=== PATIENT | male | born 1960 | race Caucasian/White ===

== ENCOUNTER → 2024-05-10 | Outpatient (CLI) | payer MEDICARE ==
[2024-05-10 14:11] LABS: Partial Thromboplastin Time 24.3 sec (22.0-30.0); Prothrombin Time 11.2 sec (10.0-12.5)
[2024-05-10 18:46] LABS: HGB 15.1 g/dL (13.0-17.0); MCH 33.6 pg (27.0-32.0); MCHC 35.1 g/dL (32.0-37.0); MCV 95.8 FL (80.0-97.0); Mean Platelet Volume 10.3 FL (9.5-12.2); NRBC Per 100 WBC 0 X 10*3/uL (0.00-0.01); Platelet Count 305 X 10*3/uL (140-440); RBC 4.49 X 10*6/uL (4.40-5.60); RDW 11.7 % (11.5-14.5); WBC 8.72 X 10*3/uL (4.50-10.00)
[2024-05-10 19:14] LABS: ALT 58 U/L (10-49); AST 47 U/L (14-35); Albumin 4.4 g/dL (3.8-4.9); Albumin/Globulin Ratio 1.38 Ratio (1.60-3.17); Alkaline Phosphatase 106 U/L (41-126); BUN/Creat Ratio 12.75 Ratio (12.00-20.00); Blood Urea Nitrogen 10.2 mg/dL (9.0-27.0); Calcium 9.6 mg/dL (8.7-10.3); Carbon Dioxide 23.5 mmol/L (21.6-31.8); Chloride 100 mmol/L (96-109); Globulin 3.2 g/dL (1.6-3.3); Glucose 115 mg/dL (70-110); Potassium 4.8 mmol/L (3.5-5.5); Sodium 136 mmol/L (135-145); Total Bilirubin 0.4 mg/dL (0.3-1.2); Total Protein 7.6 g/dL (6.2-8.2)
== END | disposition home or self-care (01) ==
LOC: LABPAT 13:03
PROVIDERS: ATTEND Orthopaedic Surgery
DX: Z01.818 Encounter for other preprocedural examination (principal); Z22.322 Carrier or suspected carrier of Methicillin resistant Staphylococcus aureus; M16.12 Unilateral primary osteoarthritis, left hip; E11.9 Type 2 diabetes mellitus without complications
CPT/HCPCS: 36415; 80053; 83036; 85027; 85610; 85730; 86850; 86900; 86901; 87070; 93005

== ENCOUNTER 2024-05-21 07:34 | Day surgery (SDC) | payer MEDICARE ==
[2024-05-18 14:56] VITALS: BMI 35.7
[~2024-05-21 07:34] MED LIST: TRANEXAMIC 1,000 MG/100ML-NACL 1,000 MG in SALINE 1 100ML.BAG IV PRN; TRANEXAMIC 1,000 MG/100ML-NACL 1,000 MG in SALINE 1 100ML.BAG IVPB PRN
[2024-05-21] MEDS: ACETAMINOPHEN TAB 500 MG TAB PO PRN (08:25)
[2024-05-21] MEDS: DOCUSATE 100 MG CAP PO PRN (08:25)
[2024-05-21] MEDS: oxyCODONE ER 10 MG TAB.ER.12H PO PRN (08:25)
[2024-05-21] MEDS: LACTATED RINGERS 1,000 ML IV SCH (08:25)
[2024-05-21] MEDS: ONDANSETRON 4 MG/2 ML VIAL IVP PRN (08:46)
[2024-05-21] MEDS: FAMOTIDINE 20 MG/2 ML VIAL IVP PRN (08:46)
[2024-05-21] MEDS: KETOROLAC 15 MG/ML 1 ML VIAL IVP PRN (08:46)
[2024-05-21] MEDS: DEXAMETHASONE SOD PHOSPHATE 10 MG/ML 1 ML VIAL IV PRN (08:46)
[2024-05-21 08:47] LABS: Glucose,Whole Blood 157 mg/dL (70-110)
[2024-05-21] MEDS: fentaNYL (PF) 50 MCG/ML 2 ML AMP IVP PRN (08:53)
[2024-05-21] MEDS: MIDAZOLAM 2 MG/2 ML VIAL IV PRN (08:53)
--- NOTE | 2024-05-21 09:04 | P.ANPRN ---
Procedure Note - Anesthesia - Nerve Block Performed Left Kana Single Time Out Performed: Yes Date of Procedure: 05/21/24 Procedure Start Time: 08:53 Procedure Stop Time: 09:01 Location of Patient: PreOp Indication: Acute Post-Operative Pain, Requested by Surgeon Sedation Type: Sedate with meaningful contact maintained Preparation: Sterile Prep Position: Supine Needle Types: Pajunk Needle Gauge: 21 Ultrasound used to visualize needle placement: Yes Ultrasound used to observe medication spread: Yes Injectate: 0.5% Ropivacaine (see comment for volume) (20 mL +10 mL of normal saline +4 mg dexamethasone) Blood Aspirated: No Pain Paresthesia on Injection Noted: No Resistance on Injection: Normal Image Stored and Saved: Yes Events: Uneventful and Well Tolerated
[2024-05-21] MEDS: IV FLUID CONTINUATION 1,000 ML IV ONE ×2 (09:07→12:48)
[2024-05-21] MEDS ORDERED: SODIUM CHLORIDE 0.9% (PF) 10 ML VIAL ONE (09:50)
[2024-05-21] MEDS ORDERED: NEOSTIGMINE 1 MG/ML 10 ML VIAL ONE (09:50)
[2024-05-21] MEDS ORDERED: ROCURONIUM 10 MG/ML (5 ML VIAL) IV ONE (09:50)
[2024-05-21] MEDS ORDERED: fentaNYL (PF) 50 MCG/ML 2 ML AMP ONE (09:50)
[2024-05-21] MEDS ORDERED: LIDOCAINE 1% INJ 10MG/ML (20 ML MDV) ONE (09:50)
[2024-05-21] MEDS ORDERED: TRANEXAMIC 1,000 MG/100ML-NACL PREMIX BAG ONE (09:50)
[2024-05-21] MEDS ORDERED: DEXAMETHASONE SOD PHOSPHATE 4 MG/ML 1 ML VIAL ONE (09:50)
[2024-05-21] MEDS ORDERED: ROPIVACAINE 5 MG/ML 30 ML VIAL ONE (09:50)
[2024-05-21] MEDS ORDERED: PHENYLEPHRINE-0.9% NACL SYG 1,000 MCG/10 ML SYRINGE ONE (09:50)
[2024-05-21] MEDS ORDERED: SUCCINYLCHOLINE CHLORIDE 200 MG/10 ML VIAL IV ONE (09:50)
[2024-05-21] MEDS ORDERED: GLYCOPYRROLATE 0.2 MG/ML 2 ML VIAL ONE (09:50)
[2024-05-21] MEDS ORDERED: MIDAZOLAM 2 MG/2 ML VIAL ONE (09:50)
[2024-05-21] MEDS ORDERED: PROPOFOL 10 MG/ML 20 ML VIAL IV ONE (09:50)
[2024-05-21] MEDS: ROPIVACAINE/EPI/CLONIDINE/KET 50 ML SYRINGE MISCELLANE PRN (10:32)
[2024-05-21] MEDS ORDERED: HYDROmorphone 0.5 MG/0.5 ML SYRINGE IVP PRN ×2 (11:47)
[2024-05-21] MEDS ORDERED: MAGNESIUM HYDROXIDE 2,400 MG/30 ML CUP PO PRN (11:47)
[2024-05-21] MEDS ORDERED: diazePAM 5 MG TAB PO PRN (11:47)
[2024-05-21] MEDS ORDERED: NALOXONE 0.4 MG/ML 1 ML VIAL IV PRN (11:47)
[2024-05-21] MEDS ORDERED: hydrOXYzine pamoate 25 MG CAP PO PRN (11:47)
--- NOTE | 2024-05-21 11:47 | P.OP ---
Date of Procedure: 05/21/24 Preoperative Diagnosis: Severe left hip osteoarthritis Postoperative Diagnosis: Same Procedure(s) Performed: Left direct anterior total hip arthroplasty Implants: 1. Chuck Trident II Acetabular Cup, Size #52 2. Chuck Insignia Size # 3 Femoral Stem, High Offset 3. Biolox delta femoral head, 36 mm, - 5 mm neck Anesthesia: CHARLIEA, regional Surgeon: Navi Sidhu Mortician Investigator #1: Sergio Crabtree Estimated Blood Loss (ml): 400 IV fluids (ml): 800 Pathology: none sent Condition: stable Disposition: PACU Indications for Procedure: I had a long discussion with the patient in the office on the potential risks and complications of an elective total hip replacement through a direct anterior approach. Risks discussed include, but are certainly not limited to, risks from anesthesia, superficial infection requiring local wound care or antibiotics, deep roula-prosthetic joint infection and the treatment required to eradicate infection, intraoperative fracture, postoperative periprosthetic fracture, damage to local blood vessels or nerves particularly the lateral femoral cutaneous nerve, delayed wound healing requiring local wound care or possibly surgical debridement, hip dislocation, leg length discrepancy, soft tissue irritation around the total hip implant such as iliopsoas tendinitis or trochanteric bursitis, wear and osteolysis from the implants, squeaking or audible noises, groin pain, thigh pain, heterotopic ossification, stiffness, aseptic loosening of the implants, dissatisfaction with surgical outcome, need for revision surgery, DVT, PE, swelling of the operative extremity, acute coronary event, stroke, failure to thrive, and possibly loss of life or limb. The patient understands that while these are the most common complications after an elective hip replacement there are certainly other less common complications possible. They were given ample time to ask questions regarding the potential complications of a hip replacement. Following our discussion the patient pro vided their verbal and written consent to go forward with an elective total hip replacement. Operative Findings: Severe left hip osteoarthritis with complete cartilage loss and partial collapse of the femoral head and complete cartilage loss in the acetabulum Description of Procedure: The patient was identified in the preoperative holding area and the correct hip was marked with my initials. I reviewed the procedure and consent with the patient. All of their questions were answered. The patient was then brought back into the operating room by anesthesia. While on the [facility] anesthesia was administered by the anesthesia team. Preoperative antibiotics and tranexamic acid were also given. After the patient was under anesthesia I examined their ankles to determine their preoperative leg length discrepancy. The skin over the anterior aspect of the hip was shaved to remove hair over the site of planned incision. Both feet and ankles were padded with webril and boots for the Casper were applied. The patient was then carefully transferred onto the Casper table. A perineal post was immediately placed. The arms were placed on arm hol ders and were well-padded. Both boots were secured to the spars on the Casper table. The patient was positioned so that the pelvis was centered over the post. Nonsterile drapes were applied. A timeout was performed identifying the correct patient, operative extremity, and procedure. At this point fluoroscopy was brought in to take preoperative images of the pelvis and operative hip. Using the standing AP pelvis from the office as a template, a comparable image was obtained with fluoroscopy. A metallic bar was used to create a bi-ischial line for use as a reference to leg length adjustments during the procedure. Global offset was also measured on both the operative and nonoperative leg. Fluoroscopy was then brought out and a pre-scrub using a chlorhexidine scrub brush was performed. The operative limb was then prepped and draped in the standard sterile fashion. An anterior longitudinal incision was made lateral and distal to the ASIS. The skin and subcutaneous tissues were incised sharply. The underlying tensor fascia was identified and incised in its midportion. The fascia was dissected free from the underlying muscle and the muscle belly was retracted. A blunt tipped cobra retractor was placed over the superior neck under the muscle fibers of the gluteus minimus. The deep enveloping fascia of the tensor was incised. The anterior leash of vessels were then identified and cauterized. The fascia between the rectus and the capsule was then incised and the pre-capsular fat was excised. A second Cobra was placed inferior to the neck. The interval between the rectus and iliocapsularis and the hip capsule was developed and a retractor was placed carefully over the anterior rim of the acetabulum. A T-shaped anterior capsulotomy was performed. The superior capsular leaflet was left in place in the inferior capsular flap was excised. The Cobra retractors were placed intracapsularly. We then made a femoral neck osteotomy according to preoperative and intraoperative templating and confirmed the level of the osteotomy using fluoroscopic imaging. The femoral head was removed, passed off to the back table, and sized. The superior capsular flap was excised. Retractors were placed circumferentially exposing the acetabulum. We then circumferentially debrided the acetabulum free of labrum and osteophytes. The pulvinar was removed to fully visualize the cotyloid fossa. We then sequentially reamed to achieve peripheral fit and excellent bleeding subchondral bone. The socket was thoroughly irrigated. The acetabular component was impacted into the appropriate position using fluoroscopy to guide version, inclination, and depth of insertion taking care to have a comparable image of the AP pelvis to the standing image taken in the office. An excellent press-fit was achieved and final position was confirmed using fluoroscopy. The press fit was augmented with a bony cancellus dome screw. The liner was then impacted into the socket. Attention was then turned to the femur. The remnant dorsal lateral capsule was excised. The short external rotators were visible and protected. A bone hook was used to confirm appropriate translation of the trochanter away from the acetabulum. The leg was then extended and adducted and the bone hook was used to elevate the femur for broaching. A box osteotome and blunt tipped canal sound was then utilized to gain access to the femoral canal. We then sequentially broached the femur in appropriate anteversion until excellent torsional stability was achieved. The neck cut was brought flush to the trial broach with a calcar planar. A trial neck and head were then placed onto the broach and the hip was atraumatically reduced under direct visualization. External rotation to 90 was performed to assess stability. Fluoroscopy was brought in. An AP and lateral fluoroscopic image of the proximal femur was obtained to assess position and fill of the trial broach. An AP of the pelvis was then obtained and matched to the preoperative image taken. A bi-ischial bar was then placed and measurements were taken to assess changes in length and offset. The hip was then carefully dislocated, the proximal femur was exposed, and the trial implants were removed. The wound and proximal femur was thoroughly irrigated using sterile saline and pulsatile lavage. The final femoral implant was dispensed and gently tapped into place generating an excellent press-fit. The trunnion was cleansed and the final head was tapped into place to engage the Jaime taper. The acetabulum was irrigated and visu alized to be free of debris. The hip was carefully reduced. Stability was checked clinically with external rotation to 90 and there was no evidence of instability. Final fluoroscopic images were taken. The wound was then thoroughly irrigated and soaked with a dilute Betadine rinse for 3 minutes. 3 L of sterile saline was irrigated through the wound using pulsatile lavage. Local anesthetic cocktail was injected into the soft tissues around the surgical field. The wound was then closed in layers. A sterile dressing was placed over the surgical incision. The drapes were taken down and the patient was carefully transferred off of the Casper table. Following removal of the boots the leg lengths felt acceptable. The patient was then taken to recovery room having tolerated the procedure well. Sergio Crabtree PA-C was required as a skilled legal assistant due to the complexity of surgery for patient positioning, draping, exposure, retraction, closure of wound and application of dressing. PLAN: The patient can weight-bear as tolerated on the operative extremity. 2 doses of postoperative antibiotics. DVT prophylaxis with aspirin 81 mg twice a day based on preoperative risk stratification. Physical therapy for gait training.
--- NOTE | 2024-05-21 11:57 | XR ---
EXAMINATION TYPE: XR Hip Limited LT, FL guidance operating room DATE OF EXAM: 05/21/2024 CLINICAL INDICATION: Male, 63 years old with history of M16.12 LEFT HIP OSTEOARTHRITIS, pain. TECHNIQUE: Fluoroscopy. Limited intraoperative views left hip. COMPARISON: None. FINDINGS: Fluoroscopic guidance was provided during left hip replacement procedure performed by Dr. Sidhu. A total of 42.6 seconds of fluoroscopic time was utilized during the procedure and 8 spot images was acquired. Intraoperative images show ventral placement of metallic hardware from total left hip arthroplasty wh ich appears satisfactory in position. TOTAL DAP = 2.2815 Gycm2. IMPRESSION: As Above. [facility], , 05/21/2024 11:55 AM
[2024-05-21] MEDS: HYDROmorphone 0.5 MG/0.5 ML SYRINGE IVP PRN (12:31)
[2024-05-21] MEDS: HYDROcodone/APAP 10-325MG 1 EACH TAB PO PRN (13:53)
[2024-05-21] MEDS: HYDROmorphone 1 MG/ML 1 ML SYRINGE IVP PRN (17:19)
[2024-05-21] MEDS: ASPIRIN 81 MG PO SCH (20:16)
[2024-05-21] MEDS: HYDROcodone/APAP 5-325MG 1 EACH TAB PO PRN (20:16)
[2024-05-21] MEDS: SENNOSIDES-DOCUSATE SODIUM 1 EACH TAB PO SCH (20:18)
[2024-05-21] MEDS: SODIUM CHLORIDE 0.9% 1,000 ML IV SCH (20:18)
[2024-05-21 20:33] VITALS: RESP 17
[2024-05-21] MEDS ORDERED: TEMAZEPAM 15 MG CAP PO PRN (21:00)
[2024-05-22] MEDS: FAMOTIDINE 20 MG TAB PO SCH (08:04)
[2024-05-22] MEDS: diazePAM 5 MG TAB PO PRN (08:09)
--- NOTE | 2024-05-22 08:54 | P.DS ---
Providers Date of admission: 05/21/2024 Attending physician: Navi Sidhu Consults: 05/21/24 11:47 Consult Physician Routine Consulting Provider: Massimo Head Consult Reason/Comments: post op medial management Do you want consulting provider notified?: Yes Primary care physician: [facility] Course: The patient is a very pleasant 63-year-old male who was admitted under my care y and underwent an uncomplicated total hip. Following surgery he was transferred to the orthopedic floor. He received 2 doses of postoperative antibiotics. He was seen by me the morning following surgery and was doing well. The dressing over his hip was intact. Femoral and sciatic nerve function was intact. His thigh and calf are soft. He worked with physical therapy and did well. He was ultimately cleared for discharge home. Patient Condition at Discharge: Good Plan - Discharge Summary Discharge Rx Participant: No New Discharge Prescriptions: New Aspirin 81 mg PO BID #60 tab Omeprazole 20 mg PO DAILY #30 tab Sennosides-Docusate Sodium [Senokot-S] 1 tab PO BID PRN #60 tablet PRN Reason: Constipation Diclofenac Sodium [Voltaren] 75 mg PO BID #60 tab HYDROcodone/APAP 7.5-325MG [[place] 7.5-325] 1 - 2 tab PO Q6HR PRN #32 tab PRN Reason: Pain No Action lisinopriL [Zestril] 20 mg PO QAM gemfibroziL [Lopid] 600 mg PO BID Mupirocin 2% Oint [Bactroban 2% Oint] 1 applic NASAL BID Discharge Medication List Mupirocin 2% Oint [Bactroban 2% Oint] 1 applic NASAL BID 05/18/24 [History] gemfibroziL [Lopid] 600 mg PO BID 05/18/24 [History] lisinopriL [Zestril] 20 mg PO QAM 05/18/24 [History] Aspirin 81 mg PO BID #60 tab 05/21/24 [Rx] Diclofenac Sodium [Voltaren] 75 mg PO BID #60 tab 05/21/24 [Rx] Omeprazole 20 mg PO DAILY #30 tab 05/21/24 [Rx] Sennosides-Docusate Sodium [Senokot-S] 1 tab PO BID PRN #60 tablet 05/21/24 [Rx] HYDROcodone/APAP 7.5-325MG [[place] 7.5-325] 1 - 2 tab PO Q6HR PRN #32 tab 05/22/24 [Rx] Follow up Appointment(s)/Referral(s): Nehemiah Zhu [NON-STAFF] - As Needed Navi Sidhu MD [Medical Doctor] - 2 Weeks Activity/Diet/Wound Care/Special Instructions: 1. Weight-bear as tolerated on your operative extremity unless instructed otherwise. Use a walker or other assistive device to ambulate. 2. Leave surgical dressing in place. If your dressing becomes saturated with blood, there is drainage, or the dressing becomes loose please contact the office. 3. It is okay to shower with your surgical dressing, but do not submerge in water (no hot tubs, bath's, swimming etc.) 4. Take your blood clot prevention medication as prescribed (aspirin, Eliquis, Xarelto, and Plavix are commonly prescribed medications for blood clot prevention) 5. While taking [place] or Percocet for pain take a stool softener (Ex: Colace) and drink lots of water. 6. Keep all follow-up appointments as scheduled. You will usually be seen in 1-2 weeks following surgery. 7. Please contact the office with any questions or concerns [phone] Discharge Disposition: HOME WITH HOME HEALTH SERVICES
[2024-05-22 09:26] LABS: HCT 33.3 % (39.6-50.0); HGB 11.3 g/dL (13.0-17.0); MCH 33.5 pg (27.0-32.0); MCHC 33.9 g/dL (32.0-37.0); MCV 98.8 FL (80.0-97.0); Mean Platelet Volume 10.2 FL (9.5-12.2); NRBC Per 100 WBC 0 X 10*3/uL (0.00-0.01); Platelet Count 305 X 10*3/uL (140-440); RBC 3.37 X 10*6/uL (4.40-5.60); RDW 11.9 % (11.5-14.5); WBC 16.77 X 10*3/uL (4.50-10.00)
[2024-05-22 10:41] LABS: Basophils # (A) 0.02 X 10*3/uL (0.00-0.10); Basophils % (A) 0.1 %; Eosinophils # (A) 0.01 X 10*3/uL (0.04-0.35); Eosinophils % (A) 0.1 %; Lymphocytes # (A) 2.61 X 10*3/uL (0.90-5.00); Lymphocytes % (A) 15.6 %; Monocytes # (A) 1.52 X 10*3/uL (0.20-1.00); Monocytes % (A) 9.1 %; Neutrophils % (A) 74.4 %
[2024-05-22] MEDS: lisinopriL 20 MG TAB PO SCH (13:46)
[2024-05-22] MEDS: FENOFIBRATE 160 MG TAB PO SCH (13:46)
[2024-05-22] MEDS: MULTIVITAMINS, THERA 1 EACH TAB PO SCH (13:46)
[2024-05-22 14:11] VITALS: BP 138/81; PULSE 101; TEMP 98.4
--- NOTE | 2024-05-22 16:28 | P.CONS ---
History of Present Illness - Reason for Consult Consult date: 05/22/24 Medical management - Chief Complaint Severe left hip pain - History of Present Illness 63-year-old male patient, history of hypertension, hyperlipidemia, depression, evaluated by orthopedic surgery as an outpatient for severe left hip pain associated with swelling, weakness and reports left leg gives way; patient was treated conservatively with anti-inflammatory and opioids which did not help w ith the pain; given worsening of symptoms and progressive worsening of weakness, patient was reevaluated and surgical intervention with total hip replacement was discussed; patient chose to proceed with surgical intervention Patient is status post left total hip arthroplasty; POD #1 Hospital medicine is consulted for medical management Review of Systems REVIEW OF SYSTEMS: CONSTITUTIONAL: No fever, no malaise, no fatigue. HEENT: No recent visual problems or hearing problems. Denied any sore throat. CARDIOVASCULAR: No chest pain, orthopnea, PND, no palpitations, no syncope. PULMONARY: No shortness of breath, no cough, no hemoptysis. GASTROINTESTINAL: No diarrhea, no nausea, no vomiting, no abdominal pain. NEUROLOGICAL: No headaches, no weakness, no numbness. HEMATOLOGICAL: Denies any bleeding or petechiae. GENITOURINARY: Denies any burning micturition, frequency, or urgency. MUSCULOSKELETAL/RHEUMATOLOGICAL: Denies any joint pain, swelling, or any muscle pain. ENDOCRINE: Denies any polyuria or polydipsia. The rest of the 14-point review of systems is negative. 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 SOB with exertion - "seen at [facility], told I have bacteria from being in [place] and causes chronic bronchiolitis". CPAP use. History of Any Multi-Drug Resistant Organisms: None Reported Past Surgical History: Back Surgery, Hernia Repair, Orthopedic Surgery Additional Past Surgical History / Comment(s): Left ankle surgery, lung surgery, back surgery X2 - has cage L5-S1 and rods L4-S1, umbilical and inguinal hernia repairs. Past Anesthesia/Blood Transfusion Reactions: No Reported Reaction Additional Past Anesthesia/Blood Transfusion Reaction / Comm: No hx blood transfusion. Past Psychological History: No Psychological Hx Reported Smoking Status: Former smoker Past Alcohol Use History: Daily Additional Past Alcohol Use History / Comment(s): Quit smoking 28 yrs ago. Drinks beer daily - 6 or more per day. Past Drug Use History: None Reported - Past Family History Sister(s) Family Medical History: Cancer Additional Family Medical History / Comment(s): Breast cancer. Medications and Allergies Home Medications Medication Instructions Recorded Confirmed Type Mupirocin 2% Oint [Bactroban 2% 1 applic NASAL BID 05/18/24 05/18/24 History Oint] gemfibroziL [Lopid] 600 mg PO BID 05/18/24 05/18/24 History lisinopriL [Zestril] 20 mg PO QAM 05/18/24 05/18/24 History Aspirin 81 mg PO BID #60 tab 05/21/24 Rx Diclofenac Sodium [Voltaren] 75 mg PO BID #60 tab 05/21/24 Rx Omeprazole 20 mg PO DAILY #30 tab 05/21/24 Rx Sennosides-Docusate Sodium 1 tab PO BID PRN #60 tablet 05/21/24 Rx [Senokot-S] HYDROcodone/APAP 7.5-325MG [[place] 1 - 2 tab PO Q6HR PRN #32 tab 05/22/24 Rx 7.5-325] Allergies Allergy/AdvReac Type Severity Reaction Status Date / Time gabapentin Allergy Unknown Verified 05/21/24 08:12 Z-Pack Allergy "Tore up Uncoded 05/21/24 08:12 my stomach". Physical Exam Vitals: Vital Signs Temp Pulse Resp BP BP Pulse Ox 05/22/24 08:00 98.9 F 100 17 145/73 97 05/22/24 06:10 96 95 05/22/24 00:59 98.8 F 110 H 17 120/75 94 L 05/21/24 21:40 110 H 17 05/21/24 19:36 98.8 F 110 H 17 111/57 96 05/21/24 15:00 99.2 F 104 H 18 104/66 93 L 05/21/24 13:48 99.2 F 104 H 18 104/66 93 L 05/21/24 13:30 104 H 18 110/63 94 L 05/21/24 13:15 103 H 18 98/66 98 05/21/24 13:00 99 18 114/64 98 05/21/24 12:45 99 18 109/71 98 05/21/24 12:30 92 18 117/73 98 05/21/24 12:15 97 16 111/63 97 05/21/24 12:05 97.0 F L 102 H 16 115/68 97 Intake and Output 05/21/24 05/22/24 05/22/24 22:59 06:59 14:59 Output Total 600 1380 Balance -600 -1380 Output: Urine 600 1380 Straight 600 Other: # Voids 1 - Constitutional General appearance: Present: average body habitus, cooperative, no acute distress - EENT Eyes: Present: anicteric sclerae, EOMI, PERRLA, normal appearance ENT: Present: hearing grossly normal, normal oropharynx Ears: bilateral: normal - Neck Neck: Present: normal ROM. Absent: lymphadenopathy, rigidity, thyromegaly Carotids: negative: bruit present Thyroid: bilateral: normal size, negative: enlarged, nodule - Respiratory Respiratory: bilateral: CTA, negative: rales, rhonchi, wheezing - Cardiovascular Rhythm: regular Heart sounds: normal: S1, S2 Abnormal Heart Sounds: Absent: systolic murmur, diastolic murmur - Gastrointestinal General gastrointestinal: Present: normal bowel sounds, soft. Absent: distended, organomegaly, tenderness - Genitourinary Genitourinary Comment(s): deferred - Integumentary Integumentary: Present: normal turgor. Absent: jaundiced, rash, ulcer - Neurologic Neurologic: Present: CNII-XII intact. Absent: focal deficits - Musculoskeletal Musculoskeletal: Present: gait normal, strength equal bilaterally - Psychiatric Psychiatric: Present: A&O x's 3, appropriate affect, intact judgment & insight Results CBC & Chem 7: 05/22/24 03:41 Labs: Abnormal Lab Results - Last 24 Hours (Table) 05/22/24 Range/Units 03:41 WBC 16.77 H (4.50-10.00) X 10*3/uL RBC 3.37 L (4.40-5.60) X 10*6/uL Hgb 11.3 L (13.0-17.0) g/dL Hct 33.3 L (39.6-50.0) % MCV 98.8 H (80.0-97.0) FL MCH 33.5 H (27.0-32.0) pg Immature Gran # 0.11 H (0.00-0.04) X 10*3/uL Neutrophils # 12.50 H (1.80-7.70) X 10*3/uL Monocytes # 1.52 H (0.20-1.00) X 10*3/uL Eosinophils # 0.01 L (0.04-0.35) X 10*3/uL Assessment and Plan Assessment: 1. Severe left hip osteoarthritis -Patient is status post left direct anterior total hip arthroplasty; POD #1 -Reports adequate pain control -Has been ambulating with therapy -Awaits orthopedic reevaluation for possible discharge home this afternoon 2. Leukocytosis; likely reactive; no signs of infection 3. Hypertension; continue with home antihypertensive therapy; lisinopril 20 mg 4. Hyperlipidemia; Lopid 600 mg twice daily DVT prophylaxis; SCDs CODE STATUS; full code
== END 2024-05-22 14:34 | disposition home health service (06) ==
LOC: OR 07:34 → 4SSUR 12:43 → OR 05-22 14:34
PROVIDERS: ATTEND Orthopaedic Surgery
DX: M16.12 Unilateral primary osteoarthritis, left hip (principal); D72.829 Elevated white blood cell count, unspecified; I10 Essential (primary) hypertension; E78.5 Hyperlipidemia, unspecified; G47.30 Sleep apnea, unspecified; Z98.890 Other specified postprocedural states; Z87.891 Personal history of nicotine dependence; Z80.3 Family history of malignant neoplasm of breast; Z79.82 Long term (current) use of aspirin; Z79.899 Other long term (current) drug therapy
CPT/HCPCS: 97161; 85025; 73501; 27130; 64473; J2250; J1100; J0690 ×2; J2405; J3010; J3490; J1171 ×2; J1885; 64999